=== PATIENT | female | born 2000 | race Hispanic/Latino ===

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

== ENCOUNTER 2019-04-18 04:41 | Emergency (ER) | payer OTHER ==
[~2019-04-18] VITALS: Ht 160 cm; Wt 76.4 kg
[~2019-04-18 04:41] MED LIST: IBUP-1114 PO; PRENTAB9 PO
[2019-04-18 05:41] LABS: BASO % 0.4 % (0.0-1.0); EOS # 0.1 10^3/uL (0.0-0.5); HEMATOCRIT 37.2 % (36.0-47.0); HEMOGLOBIN 11.9 g/dl (12.0-15.5); LYMPH # 1.4 10^3/uL (1.5-5.0); LYMPH % 19.2 % (24.0-44.0); MEAN CORPUSCULAR HEMOGLOBIN 26.9 pg (27.0-33.0); MEAN CORPUSCULAR VOLUME 84.2 fl (80.0-96.0); MONO # 0.5 10^3/uL (0.0-0.8); MONO % 6.7 % (0.0-5.0); NEUTROPHILS # 5.1 10^3/uL (1.5-8.5); NEUTROPHILS % 71.4 % (36.0-66.0); PLATELET COUNT, AUTOMATED 263 10^3/uL (150-450); RED BLOOD COUNT 4.42 10^6/uL (4.00-5.40); WHITE BLOOD COUNT 7.1 10^3/uL (4.0-10.0)
--- NOTE | 2019-04-18 07:53 | REPVR ---
EXAM: US First Trimester, Transabdominal EXAM DATE/TIME: 04/18/2019 7:05 AM CLINICAL HISTORY: 18 years old, female; Lmp or gestational age (in weeks): Unknown; Other: Vaginal bleeding; ; Additional info: Lolita lester TECHNIQUE: Imaging protocol: Real-time transabdominal obstetrical ultrasound of the maternal pelvis and a first trimester , less than 14 weeks 0 days, with image documentation. COMPARISON: No relevant prior studies available. FINDINGS: GESTATION: Gestation: No intrauterine gestational sac is seen. Uterus: Uterus measures 9.0 x 4.1 x 5.6 cm. Endometrium is prominent measuring 11.6 mm. Cervix: Unremarkable. Right adnexa: Right ovary is unremarkable measuring 3.7 x 2.0 x 2.4 cm. Left adnexa: Left ovary is unremarkable measuring 4.1 x 1.7 x 2.0 cm. Intraperitoneal: No free fluid. IMPRESSION: No evidence of intrauterine . Continue followup. No definitive evidence of ectopic . Electronically signed by: Paula Mendoza On 04/18/2019 07:53:01 AM
[2019-04-18 09:41] VITALS: BP 112/66
== END 2019-04-18 09:43 | disposition home or self-care (01) ==
LOC: M ED 04:41
DX: O20.9 Hemorrhage in early pregnancy, unspecified (principal); O99.011 Anemia complicating pregnancy, first trimester; D56.3 Thalassemia minor; O99.331 Smoking (tobacco) complicating pregnancy, first trimester; F17.210 Nicotine dependence, cigarettes, uncomplicated; Z3A.00 Weeks of gestation of pregnancy not specified

== ENCOUNTER → 2019-04-19 | Outpatient (CLI) | payer OTHER | LOC: M LAB 13:46 | PROVIDERS: ATTEND Obstetrics & Gynecology | DX: O20.0 Threatened abortion (principal) ==

== ENCOUNTER → 2019-04-26 | Outpatient (REF) | payer OTHER | LOC: M LAB REF 17:24 | PROVIDERS: ATTEND Obstetrics & Gynecology | DX: O03.89 Complete or unspecified spontaneous abortion with other complications (principal) ==